=== PATIENT | female | born 1970 | race Caucasian/White ===

== ENCOUNTER 2023-01-16 13:23 | Emergency (ER) | payer OTHER, SELFPAY ==
[2023-01-16 13:29] VITALS: BP 138/73; PULSE 68; RESP 16; TEMP 36.3; O2SAT 99
--- NOTE | 2023-01-16 13:32 | ED.EXTPRO ---
HPI - Extremity Problem General Chief complaint: Extremity Injury, Upper Stated complaint: Left Elbow Pain Source: patient and RN notes reviewed History of Present Illness HPI Narrative: 52-year-old female presents to urgent care with complaints of left elbow pain x1 month. 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 Patient reports feeling the pain mostly when she attempts to extend fully or flexes fully. Denies any noted injury. Denies any wrist pain, numbness, tingling, fevers or chills. Patient has been alternating ibuprofen and Tylenol with minimal relief. Some parts of this dictation were generated by voice recognition software and may contain typographical and/or grammatical inaccuracies. Related Data Home Medications Medication Instructions Recorded Confirmed ergocalciferol (vitamin D2) 1,250 01/16/23 mcg (50,000 unit) capsule levothyroxine 25 mcg tablet mcg 01/16/23 losartan 25 mg tablet mg 01/16/23 Allergies Allergy/AdvReac Type Severity Reaction Status Date / Time No Known Allergies Allergy Verified 01/16/23 13:35 Review of Systems Review of Systems: CONSTITUTIONAL: Denies fever, chills, or sweats. EYES: Denies visual changes, redness, or discharge. ENT: Denies otalgia and sore throat CARDIOVASCULAR: Denies chest pain, palpitations, or edema. RESPIRATORY: Denies cough or dyspnea. GASTROINTESTINAL: Denies abdominal pain, nausea, vomiting, or diarrhea. GENITOURINARY: Denies dysuria or hematuria. SKIN: Denies rash or itching. MUSCULOSKELETAL: Left elbow pain NEUROLOGIC: Denies headache, numbness, or weakness. PMFSH Comments At the time of my signature, I reviewed and agree with the nursing past medical, surgical, social, and family history. There is no relevant family history pertinent to the patient complaint. Exam Narrative: GENERAL: This is a well-nourished, well-developed patient, in no apparent distress. HEAD: normocephalic, atraumatic. EYES: Sclera clear/white. Vision is grossly intact. EARS: External ears normal, auditory canals clear and without drainage. Hearing grossly intact. NOSE: External nose normal with no obvious nasal discharge, nares without redness, no rhinorrhea. THROAT: Mucous membranes moist, posterior pharynx clear. NECK: Neck supple, non-tender without lymphadenopathy, masses or thyromegaly. CARDIOVASCULAR: Regular rate. RESPIRATORY: No respiratory distress. SKIN: warm, intact with no suspicious lesions or rash, good texture and turgor. NEURO: awake, alert, and oriented to person, place and time. There were no obvious focal neurologic abnormalities. EXTREMITIES: No clubbing, cyanosis, or edema. Tenderness noted along with lateral aspect of the left elbow. Course Course Level of Care: Express Care Visit MDM - Extremity (Nontraumatic) MDM Narrative Medical decision making narrative: Use the RICE method at home. Take the steroids as directed. Follow up with Plastics/Hand specialist if no improvement after 1 week. May take ibuprofen 600 mg every 6 hours if needed with food. Differential Diagnosis Differential diagnosis: Likely other (Tennis elbow, bursitis, arthritis, tendinitis) Critical Care Time Critical Care Time Critical Care Time: No Discharge Plan Discharge Clinical Impression: Tendinitis Patient Disposition: Home, Self-Care Condition: Stable Instructions: Antibiotic Form, Tendinitis (ED), P.R.I.C.E. Treatment (ED) Additional Instructions: Use the RICE method at home. Take the steroids as directed. Follow up with Plastics/Hand specialist if no improvement after 1 week. May take ibuprofen 600 mg every 6 hours if needed with food. Prescriptions: New methylprednisolone [Methylpred DP] 4 mg tablets,dose pack 4 mg PO DAILY Qty: 21 0RF No Action levothyroxine 25 mcg tablet losartan 25 mg tablet ergocalciferol (vitamin D2) 1,250 mcg (50,000 unit) capsule Foll
== END 2023-01-16 13:51 | disposition home or self-care (01) ==
PROVIDERS: Emergency Provider Nurse Practitioner Family; PCP Family Medicine
DX: M77.8 Other enthesopathies, not elsewhere classified (principal); M25.522 Pain in left elbow
CPT/HCPCS: 99213; G0463

== ENCOUNTER 2023-01-24 10:14 | Emergency (ER) | payer OTHER, SELFPAY ==
[2023-01-24 10:18] VITALS: BP 139/70; PULSE 70; RESP 18; TEMP 36.6; O2SAT 100
--- NOTE | 2023-01-24 10:24 | ED.URI ---
HPI - URI/Sore Throat General Chief Complaint: Upper Respiratory Infection Stated Complaint: Sinus Congestion/Fever Time Seen by Provider: 01/24/23 10:15 Source: patient and RN notes reviewed History of Present Illness HPI Narrative: Patient is a 52-year-old female who presents to urgent care with complaints of sinus pressure, drainage, right ear pain and postnasal drainage. Patient also reports of a mild cough. Patient reports a fever of 101 on Sunday. States she did have a source to strep with her granddaughter. Patient was placed on steroids on the for tendinitis and did complete the medication. Patient states the symptoms started approximately 5 days ago. No other acute complaints. No acute distress noted. Patient aware of plan of care. Some parts of this dictation were generated by voice recognition software and may contain typographical and/or grammatical inaccuracies. Related Data Home Medications Medication Instructions Recorded Confirmed ergocalciferol (vitamin D2) 1,250 See Rx Instructions .Route .COMPLEX 01/16/23 mcg (50,000 unit) capsule levothyroxine 25 mcg tablet 25 mcg PO DAILY 01/16/23 losartan 25 mg tablet 25 mg PO DAILY 01/16/23 Allergies Allergy/AdvReac Type Severity Reaction Status Date / Time No Known Allergies Allergy Verified 01/16/23 13:35 Review of Systems Review of Systems: CONSTITUTIONAL: Reports of fever EYES: Denies visual changes, redness, or discharge. ENT: Reports congestion, sinus pressure, bilateral ear pain, rhinorrhea, scratchy throat CARDIOVASCULAR: Denies chest pain, palpitations, or edema. RESPIRATORY: Reports cough without dyspnea GASTROINTESTINAL: Denies abdominal pain, nausea, vomiting, or diarrhea. GENITOURINARY: Denies dysuria or hematuria. SKIN: Denies rash or itching. MUSCULOSKELETAL: Denies back pain, joint pain, or myalgia. NEUROLOGIC: Denies headache, numbness, or weakness. All other systems reviewed are negative, except as documented in HPI. PMFSH Comments At the time of my signature, I reviewed and agree with the nursing past medical, surgical, social, and family history. There is no relevant family history pertinent to the patient complaint. Exam Narrative: GENERAL: This is a well-nourished, well-developed patient, in no apparent distress. HEAD: normocephalic, atraumatic. EYES: PERRL. Sclera clear/white. Vision is grossly intact. EARS: External ears normal, auditory canals clear and without drainage, TMs normal without perforation. Hearing grossly intact. NOSE: External nose normal with no obvious nasal discharge, nares without redness, clear rhinorrhea. THROAT: Mucous membranes moist, mild erythema in posterior pharynx with moderate postnasal drainage NECK: Neck supple, non-tender without lymphadenopathy CARDIOVASCULAR: Regular rate and rhythm without murmurs, gallops, or rubs. RESPIRATORY: Clear to auscultation. Breath sounds equal bilaterally. No wheezes, rales, or rhonchi. SKIN: warm, intact with no suspicious lesions or rash, good texture and turgor. NEURO: awake, alert, and oriented to person, place and time. There were no obvious focal neurologic abnormalities. EXTREMITIES: No clubbing, cyanosis, or edema. Course Course Level of Care: Express Care Visit Vital Signs Vital signs: Vital Signs Temperature 97.9 F 01/24/23 10:18 Pulse Rate 70 01/24/23 10:18 Respiratory Rate 18 01/24/23 10:18 Blood Pressure 139/70 01/24/23 10:18 Pulse Oximetry 100 01/24/23 10:18 Oxygen Delivery Room Air 01/24/23 10:18 Temperature 97.9 F 01/24/23 10:18 Pulse Rate 70 01/24/23 10:18 Respiratory Rate 18 01/24/23 10:18 Blood Pressure 139/70 01/24/23 10:18 Pulse Oximetry 100 01/24/23 10:18 Oxygen Delivery Room Air 01/24/23 10:18 Reviewed MDM - URI/Sore Throat MDM Narrative Medical decision making narrative: Reviewed lab results with the patient. She is aware that strep swab was negative. Educated patient on
== END 2023-01-24 11:04 | disposition home or self-care (01) ==
PROVIDERS: Emergency Provider Nurse Practitioner Family; PCP Family Medicine
DX: J32.9 Chronic sinusitis, unspecified (principal); J02.9 Acute pharyngitis, unspecified
CPT/HCPCS: 87081; 87880; 99213; G0463

== ENCOUNTER 2023-09-11 16:15 | Emergency (ER) | payer OTHER, SELFPAY ==
--- NOTE | 2023-09-11 16:59 | ED.GENADULT ---
HPI - General Adult General Chief complaint: Dental/Oral Stated complaint: Toothache Source: patient Mode of arrival: ambulatory Limitations: no limitations History of Present Illness HPI narrative: Patient presents for evaluation of left lower dental pain. Symptom onset a few weeks ago. She has a fractured tooth and has been working with her insurance to get in to see an oral surgeon. It has been approximately an 8 month process. She has been taking Tylenol and ibuprofen for pain, which seems to help. She states her pain is throbbing, 6/10 severity. No fever, chills, nausea, vomiting. She now has some left-sided otalgia and a sore throat which she believes to be 2/2 dental infection. She also has an ulcerative lesion to the left lateral aspect of the tongue. Related Data Home Medications Medication Instructions Recorded Confirmed ergocalciferol (vitamin D2) 1,250 See Rx Instructions .Route .COMPLEX 01/16/23 04/25/23 mcg (50,000 unit) capsule levothyroxine 25 mcg tablet 25 mcg PO DAILY 01/16/23 04/25/23 losartan 25 mg tablet 25 mg PO DAILY 01/16/23 04/25/23 Allergies Allergy/AdvReac Type Severity Reaction Status Date / Time No Known Allergies Allergy Verified 01/16/23 13:35 Review of Systems Review of Systems: CONSTITUTIONAL: Denies fever, chills, or sweats. EYES: Denies visual changes, redness, or discharge. ENT: Reports left lower dental pain, tongue ulcer, left sided ear pain and sore throat CARDIOVASCULAR: Denies chest pain, palpitations, or edema. RESPIRATORY: Denies cough or dyspnea. GASTROINTESTINAL: Denies abdominal pain, nausea, vomiting, or diarrhea. GENITOURINARY: Denies dysuria or hematuria. SKIN: Denies rash or itching. MUSCULOSKELETAL: Denies back pain, joint pain, or myalgia. NEUROLOGIC: Denies headache, numbness, dizziness, or weakness. PSYCHIATRIC: Denies anxiety or depression. [facility] Past Medical History Medical History No pertinent past medical history Surgical History Surgical History No pertinent past surgical history Family History Family History Mother Family history non-contributory Social History Social History Smoking status: Never smoker Substance use: never Gender identity (if verbalized by the patient): Female Spiritual care concerns: No Exam Narrative: GENERAL: Well-appearing, well-nourished, and in no acute distress. HEAD: Normocephalic, atraumatic. EYES: PERRLA and EOMI. ENT: Nares clear, no rhinorrhea or epistaxis. Tooth 17 is fractured and necrotic. There is no visible or palpable abscess. There is an ulcerative lesion noted to the left lateral aspect of the tongue NECK: Supple. No adenopathy or masses. No carotid bruits or JVD CHEST: Clear to auscultation. No respiratory distress. No wheezes rales or rhonchi HEART: Regular rate and rhythm. No murmur heard. Normal peripheral pulses. ABDOMEN: Soft, nontender, nondistended, normal active bowel sounds. EXTREMITIES: Normal range of motion. No edema. SKIN: Warm, dry, no rash. NEURO: No focal deficits. Alert and oriented x3. PSYCH: Normal mood and affect. Course Course Emergency Course: This is a 53-year-old female with a known dental fracture who presented for evaluation of left lower dental pain. Will dc with chlorhexidine, PCN and triamcinolone dental paste. Follow-up with oral surgeon and primary care provider. Go to the emergency department for worsening symptoms. Patient in agreement with plan of care. Level of Care: Express Care Visit Discharge Plan Discharge Clinical Impression: Dental infection, Fracture of tooth, Tongue ulcer Patient Disposition: Home, Self-Care Condition: Stable Instructions: Antibiotic Form, Toothache (ED)
== END 2023-09-11 17:03 | disposition home or self-care (01) ==
PROVIDERS: Emergency Provider Nurse Practitioner; PCP Family Medicine
DX: K04.7 Periapical abscess without sinus (principal); S02.5XXA Fracture of tooth (traumatic), initial encounter for closed fracture; X58.XXXA Exposure to other specified factors, initial encounter; K14.0 Glossitis
CPT/HCPCS: 99213; G0463

== ENCOUNTER 2024-04-18 17:11 | Emergency (ER) | payer OTHER, SELFPAY ==
[2024-04-18 17:16] VITALS: BP 145/78; PULSE 69; RESP 16; TEMP 36.6; O2SAT 100
[2024-04-18 17:20] VITALS: BP 145/78; PULSE 69; RESP 16; TEMP 36.6; O2SAT 100
--- NOTE | 2024-04-18 17:49 | ED.DENTAL ---
HPI - Dental/Oral General Chief complaint: Dental/Oral Stated complaint: Toothache Time Seen by Provider: 04/18/24 17:49 Source: patient Mode of arrival: ambulatory Limitations: no limitations History of Present Illness HPI Narrative: 53-year-old female presents with complaint of pain and swelling to left lower wisdom tooth. Patient reports that she has been told that the roots of her or with some tooth are wrapped around her jaw and needs to see an oral surgeon. Had an appointment last month but the clinic clear canceled it. Has another appointment scheduled for next month. Afebrile. All systems reviewed and negative except as noted above. Related Data Home Medications Medication Instructions Recorded Confirmed losartan 25 mg tablet 25 mg PO DAILY 01/16/23 04/18/24 buspirone 5 mg tablet 5 mg PO DAILY 04/18/24 04/18/24 citalopram 10 mg tablet 10 mg PO 04/18/24 levothyroxine 25 mcg tablet 25 mcg PO DAILY 04/18/24 04/18/24 terbinafine HCl 250 mg tablet 250 mg PO DAILY 04/18/24 04/18/24 Allergies Allergy/AdvReac Type Severity Reaction Status Date / Time Sulfa (Sulfonamide Allergy Rash Verified 04/18/24 17:19 Antibiotics) Review of Systems Review of Systems: CONSTITUTIONAL: Denies fever, chills, or sweats. EYES: Denies visual changes, redness, or discharge. ENT: Denies rhinorrhea, congestion, sore throat, or otalgia. Reports pain to right lower wisdom tooth. CARDIOVASCULAR: Denies chest pain, palpitations, or edema. RESPIRATORY: Denies cough or dyspnea. GASTROINTESTINAL: Denies abdominal pain, nausea, vomiting, or diarrhea. GENITOURINARY: Denies dysuria or hematuria. SKIN: Denies rash or itching. MUSCULOSKELETAL: Denies back pain, joint pain, or myalgia. NEUROLOGIC: Denies headache, numbness, or weakness. PSYCHIATRIC: Denies anxiety or depression. All other systems reviewed are negative, except as documented in HPI. [facility] Past Medical History Medical History No pertinent past medical history Surgical History Surgical History (Reviewed 09/11/23 @ 17:06 by Favian Spence, [facility] No pertinent past surgical history Family History Family History Mother Family history non-contributory Social History Social History Smoking status: Never smoker Substance use: never Gender identity (if verbalized by the patient): Female Spiritual care concerns: No Comments At time of signature, agree with nursing past medical, surgical, social and family history. There is no relevant family history pertinent to the presenting complaint. Exam Narrative: GENERAL: This is a well-nourished, well-developed patient, in no apparent distress. HEAD: normocephalic, atraumatic. EYES: PERRL. Sclera clear/white. Vision is grossly intact. EARS: External ears normal NOSE: External nose normal MOUTH: tooth #17 impacted with surrounding erythema and mild swelling NECK: Neck supple, non-tender without lymphadenopathy, masses or thyromegaly. CARDIOVASCULAR: Regular rate and rhythm without murmurs, gallops, or rubs. RESPIRATORY: Clear to auscultation. Breath sounds equal bilaterally. No wheezes, rales, or rhonchi. SKIN: warm, Dry, intact with no suspicious lesions or rash, good texture and turgor. NEURO: awake, alert, and oriented to person, place and time. There were no obvious focal neurologic abnormalities. EXTREMITIES: No joint tenderness, effusion, or edema noted. Course Course Level of Care: Express Care Visit Vital Signs Vital signs: Vital Signs Temperature 36.6 C 04/18/24 17:16 Pulse Rate 69 04/18/24 17:16 Respiratory Rate 16 04/18/24 17:16 Blood Pressure 145/78 H 04/18/24 17:16 Pulse Oximetry 100 04/18/24 17:16 Oxygen Delivery Room Air 04/18/24 17:16 Temperature 36.6 C 04/18/24 17:20 Pu
== END 2024-04-18 17:56 | disposition home or self-care (01) ==
PROVIDERS: Emergency Provider Nurse Practitioner Family; PCP Family Medicine
DX: K04.7 Periapical abscess without sinus (principal)
CPT/HCPCS: 99213; G0463